=== PATIENT | male | born 1965 ===

== ENCOUNTER 2016-02-29 19:30 | Emergency (ER) | payer OTHER ==
[2016-02-29 20:35] VITALS: BP 144/84
--- NOTE | 2016-02-29 20:57 | UC ---
Throat Pain/Nasal Rustam HPI - HPI Summary HPI Summary: Sinus and upper left dental pain for several days--patient refuses to take decongestants or flonase - History of Current Complaint Chief Complaint: UCGeneralIllness Stated Complaint: SINUS COMPLAINT Time Seen by Provider: 02/29/16 20:37 Hx Obtained From: Patient Onset/Duration: Gradual Onset, Lasting Days, Still Present Severity: Moderate Cough: None Associated Signs & Symptoms: Positive: Sinus Discomfort, Nasal Discharge - Allergies/Home Medications Allergies/Adverse Reactions: Allergies Allergy/AdvReac Type Severity Reaction Status Date / Time Gry[place]a Oil [From G[place]] Allergy Severe GI Upset Verified 10/27/14 11:16 Rice Allergy Severe Anaphylatic Verified 10/27/14 11:16 Shock Wheat Extract Allergy Severe GI Upset Verified 10/27/14 11:16 PMH/Surg Hx/FS Hx/Imm Hx Previously Healthy: No Endocrine History Of: Denies: Diabetes, Thyroid Disease Cardiovascular History Of: Denies: Cardiac Disorders, Hypertension Respiratory History Of: Reports: Asthma - CHILD WELCH Denies: COPD GI/ History Of: Denies: Ulcer - Surgical History Surgical History: None - Family History Known Family History: Positive: None Family History: no cardiovascular issues in family lineage - Social History Occupation: Employed Full-time Lives: With Family Alcohol Use: None Substance Use Type: None Smoking Status (MU): Heavy Every Day Tobacco Smoker Type: Cigarettes Amount Used/How Often: 1/2-3/4 PPD Length of Time of Smoking/Using Tobacco: 30+ YEARS Have You Smoked in the Last Year: Yes Review of Systems Constitutional: Fatigue Skin: Negative Eyes: Negative ENT: Ear Ache, Nasal Discharge Respiratory: Negative Cardiovascular: Negative Gastrointestinal: Negative Genitourinary: Negative Motor: Negative Neurovascular: Negative Musculoskeletal: Negative Neurological: Negative Psychological: Negative All Other Systems Reviewed And Are Negative: Yes Physical Exam Triage Information Reviewed: Yes Appearance: Well-Appearing, No Pain Distress, Thin Vital Signs: Initial Vital Signs Temp 98.7 F 02/29/16 20:29 Pulse 81 02/29/16 20:29 Resp 16 02/29/16 20:29 BP 144/84 02/29/16 20:29 Pulse Ox 99 02/29/16 20:29 Vital Signs Reviewed: Yes Eye Exam: Normal Eyes: Positive: Conjunctiva Clear ENT: Positive: Hearing grossly normal, Pharynx normal, Nasal congestion, TMs normal. Negative: Nasal drainage, Tonsillar swelling, Tonsillar exudate, Trismus, Muffled/hoarse voice Dental Exam: Normal Neck exam: Normal Neck: Positive: Supple, Nontender, No Lymphadenopathy Respiratory Exam: Normal Respiratory: Positive: Chest non-tender, Lungs clear, Normal breath sounds, No respiratory distress, No accessory muscle use Cardiovascular Exam: Normal Cardiovascular: Positive: RRR, No Murmur, Pulses Normal, Brisk Capillary Refill Musculoskeletal Exam: Normal Musculoskeletal: Positive: Strength Intact, ROM Intact, No Edema Neurological Exam: Normal Neurological: Positive: Alert, Muscle Tone Normal Psychological Exam: Normal Skin Exam: Normal Throat Pain/Nasal Course/Dx - Course Assessment/Plan: Amoxicillin, increase fluids, cool mist humidification follow with PCP recheck prn - Differential Dx/Diagnosis Differential Diagnosis/HQI/PQRI: Pharyngitis, Sinusitis, URI Provider Diagnoses: Sinusitis Discharge - Discharge Plan Condition: Stable Disposition: HOME Prescriptions: Amoxicillin CAP* 500 mg PO TID #20 cap Patient Education Materials: Amoxicillin (By mouth), Sinusitis (ED) Referrals: Teo Esparza PA [Physician [employer] [facility] [facility]] - If Needed
[2016-02-29] MEDS ORDERED: Amoxicillin PO (*) 500 MG CAP PO ONE (21:02)
== END 2016-02-29 21:15 | disposition home or self-care (01) ==
LOC: UCEAST 19:30
DX: J32.9 Chronic sinusitis, unspecified (principal); F17.210 Nicotine dependence, cigarettes, uncomplicated
CPT/HCPCS: 99212; A9270-GY; G0463